=== PATIENT | male | born 1965 | race Caucasian/White ===

== ENCOUNTER 2016-12-28 05:45 | Inpatient (IN) | payer OTHER ==
[2016-11-30 11:36] VITALS: BMI 28.0
[2016-11-30 12:56] LABS: BASO % 0.7 %; BASO ABS # 0.04 K/uL (0-0.2); COMPLETE YES; EOS % 4.5 %; IG% 0.2 %; LYMPH % 31.5 %; LYMPH ABS # 1.73 K/uL (1.2-3.4); MEAN CELL VOLUME 85.7 fL (80-100); MEAN CORPUSCULAR HGB CONC 36.2 g/dl (32-36); MEAN PLATELET VOLUME 10.2 fL (7.4-10.4); MONO % 8.2 %; NEUT % 54.9 %; PLATELET COUNT 155 K/uL (130-400)
[2016-11-30 12:57] LABS: URINE APPEARANCE CLEAR (CLEAR); URINE BILIRUBIN NEG (NEG); URINE COLOR YELLOW; URINE NITRITE NEG (NEG); URINE SPECIFIC GRAVITY 1.022 (1.000-1.030); UROBILINOGEN NEG (NEG); ZZUR CULT IF INDIC CLEAN CATCH NO
[2016-11-30 13:02] LABS: MANUAL MICROSCOPIC REQUIRED? NO; REVIEW REQ? NO
--- NOTE | 2016-11-30 13:05 | DIAGNOSTIC IMAGING REPORT ---
CHEST 2 VIEWS ROUTINE CLINICAL HISTORY: Preoperative chest COMPARISON STUDY: No previous studies for comparison. FINDINGS: The heart is normal in size. There is no failure. There is no focal pulmonary consolidation. There is a 15 mm left apical opacity. It is not possible to determine with this is pleural, parenchymal, or related to underlying rib. CT scanning is recommended in follow-up.[ No pleural effusions are visualized. IMPRESSION: 15 mm left apical opacity. CT scanning is recommended in follow-up. Electronically signed by: Edgar Deras M.D. 11/30/2016 1:03 PM Dictated Date/Time: 11/30/2016 1:01 PM
[2016-11-30 13:50] LABS: BUN/CREATININE RATIO 22.2 (10-20); CALCIUM 8.7 mg/dl (8.5-10.1); CREATININE 0.96 mg/dl (0.60-1.40); POTASSIUM 4.4 mmol/L (3.5-5.1)
[~2016-12-28] VITALS: Ht 185.4 cm; Wt 97.4 kg
[2016-12-28] VITALS (10 sets, daily range): BP systolic 117–169; BP diastolic 66–99; PULSE 60–83; TEMP 36.4–37.2; O2SAT 96–100; BMI 28.3
[~2016-12-28 05:45] MED LIST: AMLO-110 PO; ASPI81TA28 PO; ATOR-22 PO; CALC500T64 PO; CHOL2000 PO; COEN100C11 PO; FLONASE NAE; GLYCINE PO; INSPMPNVLG; KRIL1CAP24 PO; LOSA1TAB38 PO; MELO7.5T5 PO; MISCTAB78 PO; MULT-1027 PO; MULT1PAK6 PO; OREGCAP PO; POTA2.5T PO; [UNRECOGNIZED DRUG - OTHER] PO; [UNRECOGNIZED DRUG - OTHER] PO
[2016-12-28] MEDS ORDERED: CEFAZOLIN 2000MG IV PUSH 10 ML IV SCH (06:00)
[2016-12-28] MEDS ORDERED: LACTATED RINGER'S 1000ML 1,000 ML IV SCH (06:00)
[2016-12-28] MEDS ORDERED: FENTANYL CITRATE INJ 50 MCG/1 ML 2 ML VIAL ONE ×4 (06:32→10:14)
[2016-12-28] MEDS ORDERED: MIDAZOLAM HCL 1 MG/ML 2ML VIAL ONE (06:32)
[2016-12-28] MEDS ORDERED: BACITRACIN 50000 UNIT VIAL ONE (06:52)
[2016-12-28] MEDS ORDERED: BUPIVACAINE/EPINEPHRINE 0.5% MPF 1:200,000 30 ML VIAL ONE (06:52)
[2016-12-28] MEDS ORDERED: ALBUMIN HUMAN 5% 12.5 GM/250 ML VIAL IV ONE (07:26)
--- NOTE | 2016-12-28 07:31 | History & Physical Bridge Note ---
H&P Re-Evaluation Bridge Note: I have examined the patient, reviewed the History & Physical and in the interval since the performance of the History & Physical I have noted the following changes of clinical significance: No changes noted
--- NOTE | 2016-12-28 07:33 | History and Physical ---
History & Physical Date Dec 28, 2016. Chief Complaint Back and leg pain History of Present Illness The patient is a 51 year old male with complaints of back and leg pain Additional History Hepatic Disease: No Endocrine Disorder: No Kidney Disease: No Hypertension: Yes Heart Disease: No Bleeding Tendencies: No Infectious Diseases: No Allergies Coded Allergies: Bacitracin (Verified Allergy, Unknown, REDNESS/RASH/ INFLAMMED?, 12/28/16) PT NOT SURE IF ALLERGIC TO NEOSPORIN, USED THIS AFTER SURGERY AND NOTICED THESE REACTIONS, WAS TOLD IT COULD BE TO LATEX OR NEOSPORIN - Latex1 -Allergic Contact Dermititis (Verified Allergy, Unknown, RASH/ REDNESS/INFLAMMED?, 12/28/16) PT QUESTIONNING LATEX ALLERGY, HAD THIS REACTION AFTER A SURGERY AND WAS TOLD IT COULD BE LATEX Neomycin (Verified Allergy, Unknown, REDNESS/RASH/ INFLAMMED?, 12/28/16) PT NOT SURE IF ALLERGIC TO NEOSPORIN, USED THIS AFTER SURGERY AND NOTICED THESE REACTIONS, WAS TOLD IT COULD BE TO LATEX OR NEOSPORIN - Polymyxin B (Verified Allergy, Unknown, REDNESS/RASH/ INFLAMMED?, 12/28/16 ) PT NOT SURE IF ALLERGIC TO NEOSPORIN, USED THIS AFTER SURGERY AND NOTICED THESE REACTIONS, WAS TOLD IT COULD BE TO LATEX OR NEOSPORIN - Home Medications Scheduled Amlodipine (Norvasc), 10 MG PO QPM Aspirin (Aspirin Ec), 81 MG PO QAM Atorvastatin (Lipitor), 20 MG PO QPM Calcium W/ Magnesium (Dex-Mag), 2 TAB PO QDD Cholecalciferol (Vitamin D3), 1 CAP PO QAM Coenzyme Q10 (Ubidecarenone) (Coq-10), 200 MG PO QAM Insulin Aspart (novoLOG INSULIN PUMP ), 1 DOSE UD Krill Oil (Krill Oil 500 mg), 350 MG PO BID Losartan Potassium (Cozaar), 100 MG PO QAM Meloxicam (Mobic), 15 MG PO EVERY OTHER DAY Misc Natural Products (Osteo Bi-Flex Advanced Do), 1 TAB PO QAM Multiple Vitamin (Multi Vitamin), 1 TAB PO BID Multiple Vitamins W/ Minerals (Emergen-C Vitamin C), 1 DOSE PO DAILY Oregano (Oil Of Oregano), 1 CAP PO QAM Potassium Gluconate (Potassium Gluconate), 1 TAB PO QAM [Glycine], Unknown Dose PO QAM [Prescript Assist ], 1 TAB PO QDD [Vitamin D [place]], 1 CAP PO QAM Scheduled PRN [Flonase], 1 SPRAY ZA UD PRN for Seasonal Allergies Physical Examination Skin: warm/dry, no rash Eyes: normal inspection, EOMI, sclerae normal ENT: normal ENT inspection, pharynx normal Head: normocephalic, atraumatic Neck: supple, no adenopathy, trachea midline Respiratory/Chest: lungs clear, normal breath sounds, no respiratory distress Cardiovascular: regular rate, rhythm, no edema, no murmur Abdomen / GI: normal bowel sounds, non tender Back: normal inspection Extremities: normal inspection, normal range of motion Neurologic/Psych: no motor/sensory deficits, alert, normal reflexes, oriented x 3 Diagnosis Lumbar spinal stenosis Plan of Treatment Lumbar decompression L2 to L5 with fusion L2 to S1
[2016-12-28] MEDS ORDERED: FENTANYL CITRATE INJ 50 MCG/1 ML 2 ML VIAL IV PRN (07:45)
[2016-12-28] MEDS ORDERED: ONDANSETRON INJ 2 MG/ML 2 ML VIAL IV PRN ×2 (07:45→10:30)
[2016-12-28] MEDS ORDERED: HYDROmorphone INJ 1 MG/ML SYR IV PRN (07:45)
[2016-12-28] MEDS ORDERED: PROMETHAZINE HCL INJ 6.25 MG in SODIUM CHLORIDE 0.9% 50ML 50 ML IV PRN (07:45)
[2016-12-28] MEDS ORDERED: EpHEDrine SULFATE INJ 50 MG/ML AMP IV PRN (07:45)
[2016-12-28] MEDS ORDERED: ATROPINE SULFATE 0.1 MG/ML 5ML SYR IV PRN (07:45)
[2016-12-28] MEDS ORDERED: HYDROmorphone INJ 2 MG/ML SYR/VIAL ONE ×2 (07:59→10:23)
[2016-12-28] MEDS ORDERED: FLOSEAL HEMOSTATIC MATRIX 10ML TOP ONE (10:10)
[2016-12-28] MEDS ORDERED: DEXAMETHASONE SOD INJ 4 MG/ML VIAL ONE (10:18)
[2016-12-28] MEDS ORDERED: ONDANSETRON INJ 2 MG/ML 2 ML VIAL ONE ×2 (10:18→10:24)
[2016-12-28] MEDS ORDERED: PROPOFOL IV EMULSION 10 MG/ML 20 ML VIAL IV ONE (10:18)
[2016-12-28] MEDS ORDERED: ROCURONIUM BROMIDE 10 MG/ML 5 ML VIAL IV ONE (10:18)
[2016-12-28] MEDS ORDERED: SODIUM CHLORIDE 0.9% 1000ML 1,000 ML IV SCH ×2 (10:18→12:30)
[2016-12-28] MEDS ORDERED: LIDOCAINE HCL 2% 2 ML VIAL (20MG/ML) ONE (10:18)
[2016-12-28] MEDS ORDERED: METOPROLOL TARTRATE 1 MG/ML VIAL ONE (10:24)
[2016-12-28] MEDS ORDERED: LABETALOL HCL IV 5 MG/ML 20ML IV ONE (10:24)
[2016-12-28] MEDS ORDERED: GLYCOPYRROLATE INJ 0.2 MG/ML VIAL ONE (10:24)
[2016-12-28] MEDS ORDERED: KETOROLAC TROMETHAMINE 30 MG/ML VIAL ONE (10:24)
[2016-12-28] MEDS ORDERED: NEOSTIGMINE METHYLSULFATE 1 MG/ML 10ML VIAL ONE (10:24)
--- NOTE | 2016-12-28 10:25 | [facility] Operative Report ---
Operative Report Operative Date Dec 28, 2016. Pre-Operative Diagnosis Lumbar Spinal Stenosis Post-Operative Diagnosis same Procedure(s) Performed #1 lumbar decompression medial facetectomies foraminotomies L2 3 L3 4 L4 5. #2 posterior spinal fusion L2 3 L3 4 L4 5 L5-S1. #3 placement posterior segmental instrumentation L2 to S1. #4 interbody fusion L4 5. #5 placement peek cage 10 x 26 mm at L4 5. #6 placement of locally harvested morcellized autograft and posterior gutters. #7 placement infuse collagen sponge commode Master graft the posterior gutters and ostial amp in the interbody space. Surgeon Dr. Law Enriquez Lead Sprinkler Surgeon(s) Nhung Santoyo PA-C Estimated Blood Loss 525ML Findings Severe spinal stenosis with herniated nucleus pulposus L2-3 Specimens none per surgeon Description of Procedure Patient was met with preoperatively case discussed all questions addressed. After informed consent obtained patient was taken operative suite underwent intubation placed in a prone position on the [place] table top Meir frame. All bony prominences well-padded eyes inspected to ensure there is no external pressure placed upon them. This point the lumbar spine was prepped and draped in the normal sterile fashion. Sharp dissection with the assistance of Bovie cautery was performed onto an exposing the lamina and transverse processes of L2 -L3 L4-L5 the sacral alar bilaterally. Then performed a complete laminectomy of L4 L3 and L2 addressing severe central lateral recess stenosis foraminal disease as well as a herniated was pulposus L2-3 on the left. After this was decompressed pedicle screws are placed in L2-L3 L4-L5 and the S1 levels bilaterally with the assistance of fluoroscopy in the appropriately sized alin placed. Through a trans-foraminal approach on the left complete discectomy of L45 was performed and plate created to subcortical bleeding bone and a 11 x 26 mm peek cage filled with ostial amp bone graft tapped in position. The rods were then locked and final position bilaterally. The transverse processes of L2 -L3 L4-L5 the sacral alar burred to subcortical bleeding bone. Infuse collagen sponge mask graft locally harvested morcellized autograft was placed and posterior gutters. Cross-link locked in position. 15 round MADHAVI drain inserted. Incision was then closed with 1 Vicryl fascia 2-0 Vicryl subcutaneously for Monocryl for final skin closure Steri-Strip sterile dressing was placed patient we can take PACU stable condition. Please note Nhung Willson was present throughout the entire procedure involved in patient positioning complex portions of the surgery and final skin closure. I attest to the content of the Intraoperative Record and any orders documented therein. Any exceptions are noted below.
[2016-12-28] MEDS ORDERED: NALOXONE HCL 0.4 MG/1 ML VIAL/CARP IV PRN ×2 (10:30)
[2016-12-28] MEDS ORDERED: hydrOXYzine HCL 25 MG TAB PO PRN (10:30)
[2016-12-28] MEDS ORDERED: SOD PHOSPHATE/SOD BIPHOSPHATE ENEMA 132 ML BTL PR PRN (10:30)
[2016-12-28] MEDS ORDERED: PROMETHAZINE HCL INJ 12.5 MG in SODIUM CHLORIDE 0.9% 50ML 50 ML IV PRN (10:30)
[2016-12-28] MEDS ORDERED: LORAZEPAM INJ 0.5 MG in SYRINGE 0 ML IV PRN (10:30)
[2016-12-28] MEDS ORDERED: DO NOT ADMINISTER PNEUMOCOCCAL VACCINE PRN ×2 (10:30)
[2016-12-28] MEDS ORDERED: FAMOTIDINE 20 MG TAB PO PRN (10:30)
[2016-12-28] MEDS ORDERED: BISACODYL 10 MG SUPP PR PRN (10:30)
[2016-12-28] MEDS ORDERED: LORAZEPAM 0.5 MG TAB PO PRN (10:30)
[2016-12-28] MEDS ORDERED: ACETAMINOPHEN 500 MG TAB PO PRN (10:30)
[2016-12-28] MEDS ORDERED: METOCLOPRAMIDE HCL INJ 5 MG/ML 2 ML VIAL IV PRN (10:30)
[2016-12-28] MEDS ORDERED: DO NOT ADMINISTER FLU VACCINE PRN ×3 (10:30)
[2016-12-28] MEDS ORDERED: ALUMINUM/MAGNESIUM SUSP 30 ML UDC PO PRN (10:30)
[2016-12-28] MEDS ORDERED: MAGNESIUM HYDROXIDE SUSP 30 ML UDC PO PRN (10:30)
[2016-12-28] MEDS ORDERED: ACETAMINOPHEN IV 100 ML IV PRN (10:30)
--- NOTE | 2016-12-28 10:39 | DIAGNOSTIC IMAGING REPORT ---
INTRAOPERATIVE LUMBAR SPINE 3 VIEWS CLINICAL HISTORY: L2-L5 DECOMPRESSION/ L2-S1 FUSION COMPARISON STUDY: Outside study dated 09/02/2016 FINDINGS: 37 seconds of fluoroscopic time was utilized. 3 intraoperative fluoroscopic spot images were obtained. There are postsurgical changes of an L4-5 discectomy and interbody fusion. Postlaminectomy changes are evident. There is posterior pedicle screw spinal fusion. There are pedicle screws at the L2-L5 levels with adjoining spinal rods. IMPRESSION: Postsurgical changes as described above. Electronically signed by: Edgar Deras M.D. 12/28/2016 10:38 AM Dictated Date/Time: 12/28/2016 10:37 AM
[2016-12-28] MEDS ORDERED: HYDROmorphone HCL 0.5MG/ML 50 ML CASSETTE ONE (10:44)
[2016-12-28] MEDS ORDERED: GLUCOSE 10 TABS/TUBE PO PRN (11:00)
[2016-12-28] MEDS ORDERED: GLUCOSE 40% GEL 15 GM TUBE PO PRN (11:00)
[2016-12-28] MEDS ORDERED: PHARMACY GLYCEMIC MGMT CONSULT PRN (11:00)
[2016-12-28] MEDS ORDERED: GLUCAGON FOR INJ 1 MG VIAL SQ PRN (11:00)
[2016-12-28] MEDS ORDERED: DEXTROSE 50% 50 ML SYR IV PRN (11:00)
--- NOTE | 2016-12-28 11:31 | Anesthesiology Progress Note ---
Anesthesia Post Op Note Date & Time Dec 28, 2016 at 11:30 Vital Signs Pain Intensity: 4 Vital Signs Past 12 Hours Date Time Temp Pulse Resp B/P (MAP) Pulse Ox O2 Delivery O2 Flow Rate FiO2 12/28/16 11:25 36.5 64 16 139/76 100 Nasal Cannula 2 12/28/16 10:57 63 17 12/28/16 10:57 63 17 100 12/28/16 10:56 160/92 12/28/16 10:52 62 16 100 12/28/16 10:52 61 16 12/28/16 10:51 150/85 12/28/16 10:47 60 15 100 12/28/16 10:47 60 15 12/28/16 10:46 158/85 12/28/16 10:42 63 12 100 12/28/16 10:42 63 12 12/28/16 10:41 161/87 12/28/16 10:38 171/80 12/28/16 10:37 69 14 12/28/16 10:37 36.6 65 14 171/80 100 Oxymask 10 12/28/16 10:37 69 14 100 12/28/16 06:24 36.6 75 18 169/99 97 Room Air Notes Mental Status: alert / awake / arousable, participated in evaluation Pt Amnestic to Procedure: Yes Nausea / Vomiting: adequately controlled Pain: adequately controlled Airway Patency, RR, SpO2: stable & adequate BP & HR: stable & adequate Hydration State: stable & adequate Anesthetic Complications: no major complications apparent Patient is tolerating PO. Blood sugar acceptable. Insulin pump running at basal rate to floor.
[2016-12-28] MEDS: HYDROmorphone HCL 0.5MG/ML 50 ML CASSETTE IV PRN ×2 (11:48→22:52)
--- NOTE | 2016-12-28 12:02 | Pharmacy Progress Note ---
Glycemic Control Intl Consult Date of Service Dec 28, 2016. Scope Glycemic Pharmacist consulted by Dr Enriquez on 12/28/16 for glycemic control and to write orders per [facility] inpatient glycemic control protocol Objective Weight (Kilograms): 97.4 Accuchecks BSG (last 24hrs): Test 12/28/16 06:10 12/28/16 09:02 12/28/16 10:02 12/28/16 11:00 Bedside Glucose 163 mg/dl (70-99) 209 mg/dl (70-99) 197 mg/dl (70-99) 177 mg/dl (70-99) Recent Pertinent Medications Outpatient Anti-diabetic Regimen: * Novolog Insulin Pump * CF: 30 * CR: 10 * Basal rates shift between 0.8-1.1 units/hr Risk Factors for Insulin Resistance: * Steroids * Recent Surgery * Diet Assessment & Plan ASSESSMENT: * 51 yo T1DM male admitted s/p lumbar decompression, POD #0 * Unknown outpatient glycemic control - will order A1c with AM labs * Pt uses Novolog insulin pump alone and basal/bolus settings will be discussed with him * I anticipate him to have significantly elevated BSGs immediately post-op due to high dose IV dexamethasone and current Novolog pump settings would not meet his needs * Recommend insulin drip per moderate stress protocol- goal range 100-180 mg/dL for 24 hrs post-op then bridge back to pump once effects of steroids dissipate * Spoke with pt and his Damari, he has had difficulty with wound healing in the past given high BSGs from steroids and is very concerned about his BSGs going >170. I told him the insulin drip is our best option and will provide the tightest control. Will transition to Novolog pump as soon as able. PLAN FOR INPATIENT GLYCEMIC CONTROL: * Start IV insulin infusion per moderate stress protocol * Goal Range 120 - 200 mg/dl * Hold outpatient Novolog Pump at this time * Correctional Insulin with NOVOLOG per scale PCHS * Instead of allowing drip rates to dictate prandial coverage - I will stress pt's presumed outpatient carb ratio * Nutritional / Prandial insulin per carb ratio of 1 unit per 7 grams CHO consumed? * Give NS+20KCL @ 150 cc/hr - anticipate electrolyte shifts while drip on - will follow up PRP tomorrow AM * OK to D/C when drip turned off * Please note that the plan above was derived based on current level of insulin resistance and hospital stress. These recommendations are appropriate for inpatient admission only. Plan of care upon discharge will need to be reassessed to avoid potential outpatient hypo/hyperglycemia. Thank you.
[2016-12-28] MEDS ORDERED: INSULIN IV INFUSION PROTOCOL SCH (13:15)
[2016-12-28] MEDS: LOSARTAN POTASSIUM 50 MG TAB PO SCH (13:27)
[2016-12-28] MEDS ORDERED: INSULIN HUMAN REGULAR IV BOLUS 2.5 UNIT in SYRINGE 0 ML IV SCH (14:00)
[2016-12-28] MEDS: INSULIN REGULAR 250 UNITS in SODIUM CHLORIDE 0.9% 250ML 250 ML IV SCH ×8 (14:10→22:18)
[2016-12-28] MEDS: INSULIN ASPART 100 UNITS/ML 3 ML PEN SC SCH ×3 (14:16→21:00)
[2016-12-28] MEDS: NSS + 20MEQ KCL 1000ML 1,000 ML IV SCH (14:19)
--- NOTE | 2016-12-28 17:15 | Medical Consult ---
Consultation Date of Consultation: Dec 28, 2016. Attending Physician: Law Enriquez D.O. History of Present Illness This is a 51 year old male with a PMH of testicular cancer s/p L orchiectomy and radiation, now in remission, type 1 DM on an insulin pump, HTN, HLD presents for a planned lumbar decompression/fusion - Lower back has been bothering him for some time and once the nerve became impinged, the pain became worse. States he's doing well post-operatively. On a CORE SHAPER pump for pain. Insulin pump held and insulin drip started. He feels fine, no complaints at this time. Social History Smoking Status: Never Smoker Allergies Coded Allergies: Bacitracin (Verified Allergy, Unknown, REDNESS/RASH/ INFLAMMED?, 12/28/16) PT NOT SURE IF ALLERGIC TO NEOSPORIN, USED THIS AFTER SURGERY AND NOTICED THESE REACTIONS, WAS TOLD IT COULD BE TO LATEX OR NEOSPORIN - Latex1 -Allergic Contact Dermititis (Verified Allergy, Unknown, RASH/ REDNESS/INFLAMMED?, 12/28/16) PT QUESTIONNING LATEX ALLERGY, HAD THIS REACTION AFTER A SURGERY AND WAS TOLD IT COULD BE LATEX Neomycin (Verified Allergy, Unknown, REDNESS/RASH/ INFLAMMED?, 12/28/16) PT NOT SURE IF ALLERGIC TO NEOSPORIN, USED THIS AFTER SURGERY AND NOTICED THESE REACTIONS, WAS TOLD IT COULD BE TO LATEX OR NEOSPORIN - Polymyxin B (Verified Allergy, Unknown, REDNESS/RASH/ INFLAMMED?, 12/28/16 ) PT NOT SURE IF ALLERGIC TO NEOSPORIN, USED THIS AFTER SURGERY AND NOTICED THESE REACTIONS, WAS TOLD IT COULD BE TO LATEX OR NEOSPORIN - Current Inpatient Medications Current Inpatient Medications Medications (Trade) Dose Ordered Sig/Khanh Route Start Time Stop Time Status Last Admin Dose Admin Cefazolin Sodium 10 ml @ 2.5 mls/min PREOP IV 12/28/16 06:00 12/28/16 18:00 12/28/16 07:40 2.5 MLS/MIN Dexamethasone Sodium Phosphate 6 mg/Syringe 1.5 ml @ 1 mls/min Q8H IV 12/28/16 18:00 12/29/16 10:02 Promethazine HCl 12.5 mg/Sodium Chloride 50.5 ml @ 202 mls/hr Q6H PRN IV 12/28/16 10:30 01/27/17 10:29 Ondansetron HCl (Zofran Inj) 4 mg Q6H PRN IV 12/28/16 10:30 01/27/17 10:29 Metoclopramide HCl (Reglan Inj) 10 mg Q6H PRN IV 12/28/16 10:30 01/27/17 10:29 Lorazepam (Ativan Tab) 0.5 mg Q8H PRN PO 12/28/16 10:30 01/27/17 10:29 Lorazepam 0.5 mg/ Syringe 0.25 ml @ 1 mls/min Q8H PRN IV 12/28/16 10:30 01/27/17 10:29 Pneumococcal Polysaccharide Vaccine 1 ea PRN PRN N/A 12/28/16 10:30 01/27/17 10:29 Influenza Virus Vacc Triv Types A&B 1 ea PRN PRN N/A 12/28/16 10:30 01/27/17 10:29 Polyethylene (Miralax Powder Packet) 17 gm Q6 PO 12/30/16 06:00 01/29/17 05:59 Bisacodyl (Dulcolax Supp) 10 mg DAILY PRN HI 12/28/16 10:30 01/27/17 10:29 Magnesium Hydroxide (Milk Of Magnesia Susp) 30 ml DAILY PRN PO 12/28/16 10:30 01/27/17 10:29 Hydromorphone HCl (Dilaudid Inj) 1 mg Q3H PRN IV 12/29/16 06:00 01/12/17 05:59 Oxycodone HCl (Roxicodone Immediate Rel Tab) 5-10mg prn moderate to sev... Q4H PRN PO 12/29/16 06:00 01/12/17 05:59 Cefazolin Sodium 2000 mg/Syringe 10 ml @ 2.5 mls/min Q8H IV 12/28/16 18:00 12/29/16 02:03 Acetaminophen (Tylenol Tab) 1,000 mg Q8H PRN PO 12/28/16 10:30 01/27/17 10:29 Acetaminophen 100 ml @ 400 mls/hr Q8H PRN IV 12/28/16 10:30 01/27/17 10:29 Naloxone HCl (Narcan Inj) 0.1 mg Q5M PRN IV 12/28/16 10:30 01/27/17 10:29 Senna/Docusate Sodium (Senokot S Tab) 2 tab HS PO 12/28/16 21:00 01/27/17 20:59 Sodium Biphosphate/ Sodium Phosphate (Fleet Enema) 132 ml ONE PRN HI 12/28/16 10:30 01/27/17 10:29 Hydroxyzine HCl (Vistaril Tab) 25 mg Q8H PRN PO 12/28/16 10:30 01/27/17 10:29 Al Hydroxide/Mg Hydroxide (Maalox Susp) 30 ml Q6H PRN PO 12/28/16 10:30 01/27/17 10:29 Famotidine (Pepcid Tab) 20 mg Q12H PRN PO 12/28/16 10:30 01/27/17 10:29 Diphenhydramine HCl (Benadryl Cap) 25 mg Q6H PRN PO 12/28/16 10:30 01/27/17 10:29 Miscellaneous Information (Discontinue CORE SHAPER) 1 ea TODAY@0600 N/A 12/29/16 06:00 12/29/16 06:01 Naloxone HCl (Narcan Inj) 0.1 mg Q5M PRN IV 12/28/16 10:30 12/29/16 06:00 Hydromorphone HCl (Dilaudid Postdoctoral Scientist) 25 mg PRN PRN IV 12/28/16 10:30 12/29/16 06:00 12/28/16 11:48 25 MG Sodium Chloride 1,000 ml @ 15 mls/hr Q24H IV 12/28/16 10:18 12/29/16 06:00 Amlodipine Besylate (Norvasc Tab) 10 mg QPM PO 12/28/16 21:00 01/27/17 20:59 Aspirin (Ecotrin Tab) 81 mg QAM PO 12/29/16 09:00 01/28/17 08:59 Atorvastatin Calcium (Lipitor Tab) 20 mg QPM PO 12/28/16 21:00 01/27/17 20:59 Losartan Potassium (coZAAR TAB) 100 mg QAM PO 12/28/16 12:30 01/27/17 12:29 12/28/16 13:27 100 MG Miscellaneous Information (Consult Glycemic Management Pharmacy) 1 ea UD PRN N/A 12/28/16 11:00 01/27/17 10:59 Glucose (Glucose 40% Gel) 15-30 GRAMS 15 GRAMS... UD PRN PO 12/28/16 11:00 01/27/17 10:59 Glucose (Glucose Chew Tab) 4-8 Tablets 4 Tabl... UD PRN PO 12/28/16 11:00 01/27/17 10:59 Dextrose (Dextrose 50% 50ML Syringe) 25-50ML OF 50% DW IV FOR... UD PRN IV 12/28/16 11:00 01/27/17 10:59 Glucagon (Glucagon Inj) 1 mg UD PRN SQ 12/28/16 11:00 01/27/17 10:59 Hydromorphone HCl (Dilaudid Inj) 0.5 mg Q3H PRN IV 12/29/16 06:00 01/12/17 05:59 Insulin Aspart (novoLOG ASPART) [facility] 12/28/16 13:00 01/27/17 12:59 12/28/16 14:16 4 UNITS Insulin Human Regular 250 units/ Sodium Chloride 252.5 ml @ 0 mls/hr Q24H IV 12/28/16 14:00 01/27/17 13:59 12/28/16 15:18 2.9 MLS/HR Potassium Chloride/Sodium Chloride 1,000 ml @ 100 mls/hr Q10H IV 12/28/16 14:00 01/27/17 13:59 12/28/16 14:19 100 MLS/HR Review of Systems Constitutional: + weakness, No fever, No chills Respiratory: No cough, No sputum, No shortness of breath, No dyspnea on exertion, No dyspnea at rest Cardiovascular: No chest pain, No edema, No palpitations Abdomen: No pain, No nausea, No vomiting, No diarrhea, No constipation, No GI bleeding Musculoskeletal: + joint pain (low back, now controlled), No muscle pain, No swelling, No calf pain Genitourinary - Male: No hematuria, No dysuria, No urinary frequency, No urinary urgency Neurologic: No memory loss, No paralysis, No weakness Psychiatric: No depression symptoms, No anxiety, No insomnia Endocrine: No fatigue, No excessive thirst, No excessive urination Hematologic / Lymphatic: No abnormal bleeding/bruising Integumentary: No rash Allergic / Immunologic: No environmental allergies, No seasonal allergies Physical Exam Date Time Temp Pulse Resp B/P (MAP) Pulse Ox O2 Delivery O2 Flow Rate FiO2 12/28/16 16:00 36.9 72 15 124/66 (85) 98 Nasal Cannula 2.0 12/28/16 14:47 36.4 70 16 131/75 (93) 99 Nasal Cannula 4.0 12/28/16 13:54 71 18 148/72 (97) 100 Nasal Cannula 4.0 12/28/16 12:49 36.7 69 16 152/82 (105) 99 Nasal Cannula 4.0 12/28/16 12:12 61 16 151/81 (104) 100 Nasal Cannula 2.0 12/28/16 11:50 Nasal Cannula 2.0 12/28/16 11:50 Nasal Cannula 2.0 12/28/16 11:45 36.8 60 16 143/76 (98) 99 Nasal Cannula 2.0 12/28/16 11:33 63 15 12/28/16 11:33 63 15 100 12/28/16 11:32 146/77 12/28/16 11:28 62 16 100 12/28/16 11:28 62 16 12/28/16 11:26 139/76 12/28/16 11:25 36.5 64 16 139/76 100 Nasal Cannula 2 12/28/16 11:23 67 10 12/28/16 11:23 68 10 100 12/28/16 11:21 153/79 12/28/16 11:18 60 12 100 12/28/16 11:18 60 12 12/28/16 11:16 140/90 12/28/16 11:13 59 8 12/28/16 11:13 58 8 100 12/28/16 11:11 153/83 12/28/16 11:08 60 11 100 12/28/16 11:08 60 11 12/28/16 11:06 176/84 12/28/16 11:03 62 15 100 12/28/16 11:03 61 15 12/28/16 11:01 151/83 12/28/16 10:58 60 16 100 12/28/16 10:58 61 16 12/28/16 10:57 63 17 12/28/16 10:57 63 17 100 12/28/16 10:56 160/92 12/28/16 10:52 62 16 100 12/28/16 10:52 61 16 12/28/16 10:51 150/85 12/28/16 10:47 60 15 100 12/28/16 10:47 60 15 12/28/16 10:46 158/85 12/28/16 10:42 63 12 100 12/28/16 10:42 63 12 12/28/16 10:41 161/87 12/28/16 10:38 171/80 12/28/16 10:37 69 14 12/28/16 10:37 36.6 65 14 171/80 100 Oxymask 10 12/28/16 10:37 69 14 100 12/28/16 06:24 36.6 75 18 169/99 97 Room Air General Appearance: no apparent distress Head: normocephalic, atraumatic Eyes: normal inspection ENT: hearing grossly normal Neck: supple Respiratory/Chest: chest non-tender, lungs clear, normal breath sounds, no respiratory distress, no accessory muscle use Cardiovascular: regular rate, rhythm, no edema, no murmur Abdomen/GI: normal bowel sounds, non tender, soft Back: + pertinent finding (+MADHAVI drain in place, draining bloody discharge) Extremities/Musculoskelatal: normal inspection, no calf tenderness, normal capillary refill, no pedal edema, normal range of motion, + pertinent finding (+ SCDs) Neurologic/Psych: repossessor II-XII nml as tested, no motor/sensory deficits, alert, normal mood/affect, oriented x 3 Skin: normal color Lymphatic: no adenopathy Laboratory Results Last 24 Hours Test 12/28/16 06:10 12/28/16 09:02 12/28/16 10:02 12/28/16 11:00 Bedside Glucose 163 mg/dl 209 mg/dl 197 mg/dl 177 mg/dl Test 12/28/16 12:02 12/28/16 13:32 12/28/16 15:12 12/28/16 16:13 Bedside Glucose 170 mg/dl 201 mg/dl 239 mg/dl 222 mg/dl Assessment & Plan This is a 51 year old male with a PMH of testicular cancer s/p L orchiectomy and radiation, now in remission, type 1 DM on an insulin pump, HTN, HLD presents for a planned lumbar decompression/fusion Lumbar Decompression/Fusion doing well post-operatively POD #0 will check labs in AM (H/H, electrolytes) currently on a CORE SHAPER pump other management as per ortho Type 1 Diabetes on an insulin pump at home currently on an insulin drip and some fluids will monitor, due to stress of surgery and stefanie-operative steroid use glycemic control consult placed HTN continue amlodipine + Cozaar HLD continue statin DVT ppx as per ortho FULL CODE
[2016-12-28] MEDS: DEXAMETHASONE INJ 6 MG in SYRINGE 0 ML IV SCH (18:25)
[2016-12-28] MEDS: CEFAZOLIN IV 2,000 MG in SYRINGE 0 ML IV SCH (18:30)
[2016-12-28] MEDS: DOCUSATE SODIUM/SENNA 50/8.6MG TAB PO SCH (20:17)
[2016-12-28] MEDS: AMLODIPINE BESYLATE 5 MG TAB PO SCH (20:18)
[2016-12-28] MEDS: ATORVASTATIN 20 MG TAB PO SCH (20:18)
[2016-12-29] MEDS: NSS + 20MEQ KCL 1000ML 1,000 ML IV SCH ×3 (00:06→20:21)
[2016-12-29] MEDS: DEXAMETHASONE INJ 6 MG in SYRINGE 0 ML IV SCH ×2 (02:11→10:39)
[2016-12-29] MEDS: CEFAZOLIN IV 2,000 MG in SYRINGE 0 ML IV SCH (02:12)
[2016-12-29 03:08] VITALS: BP 133/76; PULSE 64; TEMP 36.6; O2SAT 98
[2016-12-29] MEDS ORDERED: HYDROmorphone INJ 1 MG/ML SYR IV PRN (06:00)
[2016-12-29] MEDS ORDERED: DC PCA SCH (06:00)
[2016-12-29] MEDS ORDERED: HYDROmorphone INJ 0.5 MG/0.5 ML SYR IV PRN (06:00)
[2016-12-29 07:13] LABS: BASO % 0.1 %; BASO ABS # 0.01 K/uL (0-0.2); COMPLETE YES; HEMATOCRIT 33.1 % (42-52); IG% 0.3 %; LYMPH % 6.7 %; LYMPH ABS # 1.02 K/uL (1.2-3.4); MEAN CELL VOLUME 87.3 fL (80-100); MEAN CORPUSCULAR HEMOGLOBIN 30.9 pg (25-34); MEAN CORPUSCULAR HGB CONC 35.3 g/dl (32-36); MEAN PLATELET VOLUME 10.1 fL (7.4-10.4); MONO % 2.4 %; NEUT % 90.5 %; PLATELET COUNT 154 K/uL (130-400); RED BLOOD COUNT 3.79 M/uL (4.7-6.1); WHITE BLOOD COUNT 15.26 K/uL (4.8-10.8)
[2016-12-29 07:39] VITALS: BP 153/82; PULSE 68; TEMP 36.8; O2SAT 97
[2016-12-29 07:42] LABS: BUN/CREATININE RATIO 20.3 (10-20); CALCIUM 8.3 mg/dl (8.5-10.1); CREATININE 0.95 mg/dl (0.60-1.40); POTASSIUM 4.3 mmol/L (3.5-5.1)
--- NOTE | 2016-12-29 07:56 | Anesthesiology Progress Note ---
Anesthesia Post Op Note Date & Time Dec 29, 2016 at 07:56 Vital Signs Pain Intensity: 4.0 Vital Signs Past 12 Hours Date Time Temp Pulse Resp B/P (MAP) Pulse Ox O2 Delivery O2 Flow Rate FiO2 12/29/16 07:39 36.8 68 19 153/82 (105) 97 Room Air 12/29/16 03:08 36.6 64 14 133/76 (95) 98 Room Air 12/28/16 23:10 Room Air 12/28/16 23:06 36.9 68 18 117/68 (84) 99 Room Air 12/28/16 20:15 66 150/73 (98) Notes Mental Status: alert / awake / arousable, participated in evaluation Pt Amnestic to Procedure: Yes Nausea / Vomiting: adequately controlled Pain: adequately controlled Airway Patency, RR, SpO2: stable & adequate BP & HR: stable & adequate Hydration State: stable & adequate Anesthetic Complications: no major complications apparent
[2016-12-29] MEDS: ASPIRIN 81 MG ECTAB PO SCH (08:22)
[2016-12-29] MEDS: LOSARTAN POTASSIUM 50 MG TAB PO SCH (08:23)
[2016-12-29] MEDS: INSULIN ASPART 100 UNITS/ML 3 ML PEN SC SCH ×4 (08:32→20:29)
[2016-12-29 08:34] LABS: ESTIMATED AVERAGE GLUCOSE 166 mg/dl; HA1C FLAG Normal (Normal)
[2016-12-29] MEDS: OXYCODONE HCL IR 5 MG TAB (IMMEDIATE RELEASE) PO PRN ×3 (08:35→20:27)
--- NOTE | 2016-12-29 09:26 | Pharmacy Progress Note ---
Glycemic Control Progress Note Date of Service Dec 29, 2016. Scope Glycemic Pharmacist consulted for glycemic control to write orders per [facility] inpatient glycemic control protocol. Objective Accuchecks BSG (last 24hrs): Test 12/28/16 10:02 12/28/16 11:00 12/28/16 12:02 12/28/16 13:32 Bedside Glucose 197 mg/dl (70-99) 177 mg/dl (70-99) 170 mg/dl (70-99) 201 mg/dl (70-99) Test 12/28/16 15:12 12/28/16 16:13 12/28/16 17:12 12/28/16 18:14 Bedside Glucose 239 mg/dl (70-99) 222 mg/dl (70-99) 191 mg/dl (70-99) 213 mg/dl (70-99) Test 12/28/16 19:16 12/28/16 20:13 12/28/16 21:16 12/28/16 22:15 Bedside Glucose 216 mg/dl (70-99) 185 mg/dl (70-99) 169 mg/dl (70-99) 154 mg/dl (70-99) Test 12/29/16 00:08 12/29/16 02:11 12/29/16 04:17 12/29/16 06:12 Bedside Glucose 145 mg/dl (70-99) 158 mg/dl (70-99) 157 mg/dl (70-99) 174 mg/dl (70-99) Test 12/29/16 06:53 Random Glucose 163 mg/dl (70-99) HbA1c: Test 12/29/16 06:53 Hemoglobin A1c 7.4 % (4.5-5.6) H Recent Pertinent Medications The patient is currently receiving: * an insulin drip at 4.2 units/hr, and Novolog with meals using a CR of 7 Outpatient Anti-Diabetic Meds * Novolog Insulin Pump * CF: 30 * CR: 10 * Basal rates shift between 0.8-1.1 units/hr Assessment & Plan ASSESSMENT: * See progress note from 12/28 for more background info, in short: * Pt receiving SQ basal bolus insulin regimen for hyperglycemia secondary to baseline DM (outpatient regimen on hold), recent surgery, steroids * Patient is currently receiving an average of 100 units of insulin per day * BSGs ranging 163 - 174 mg/dl over the past 24hrs * BSGs remain controlled on the insulin drip while on IV Decadron postop, however, insulin drip rates are 4x that of his insulin pump! * The plan will be to continue on the insulin drip for best glucose control while on the IV steroids. I expect the effects on blood glucose to resolve later tonight into tomorrow AM. * Patient can transition back to his pump once insulin drip rates are back to his insulin pump settings PLAN FOR INPATIENT GLYCEMIC CONTROL: * Continue insulin infusion with current goal range and tightened CR for the steroids * Tighten further to 1 unit per 5 gm CHO * Transition back to insulin pump when insulin drip rates are less than 1.5 units/hr (and when patient has own pump supplies) - confirmed with nurse today that patient has his own supplies here * Overlap for ~ 1 hr * D/c IVF when insulin drip d/c'd RECOMMENDATIONS FOR DISCHARGE: * A1c indicates acceptable outpatient control. Continue insulin pump on d/c Thank you.
[2016-12-29] MEDS ORDERED: RXC5 PO (10:14)
--- NOTE | 2016-12-29 10:14 | Discharge Instructions ---
Discharge Instructions Date of Service Dec 29, 2016. Admission Reason for Admission: Spinal Stenosis Discharge Discharge Diagnosis / Problem: lumbar spinal stenosis Discharge Goals Goal(s): Improve function Activity Recommendations Activity Limitations: per Instructions/Follow-up section . Instructions / Follow-Up Instructions / Follow-Up ACTIVITY RECOMMENDATIONS: SELF CARE INSTRUCTIONS AFTER THORACIC/LUMBAR FUSIONS 1. You may walk to your tolerance. It is good exercise for your legs and back. Expect some back and intermittent leg aches and pains. 2. You may perform "counter-top" level activities (make a sandwich, maulik with a project, etc.). 3. No bending or lifting of more than 10 pounds or back twisting of any nature (roll like a log when turning in bed). 4. You may ride in a car for 20-30 minutes at a time. No driving until after your first visit with your doctor. 5. Frequent changes of position and restricting sitting to 30 minutes at a time will help limit the amount of back spasms and stiffness you may experience. 6. You may discontinue the use of ambulatory aids (cane, crutches, etc.) once your strength and confidence allow. 7. You may procurement internship the shower and let water strike your incision when you arrive home at least once daily. Do not take a tub bath, sit in a hot tub or go into a swimming pool until after your first recheck in the office. SPECIAL CARE INSTRUCTIONS: VERY IMPORTANT TO READ AND REVIEW A. Your surgical incision has been closed with a cosmetic suture under the skin that will dissolve in about 6 weeks. In 14 days, you can use a pair of clean scissors and cut the suture that is left outside of the skin at the ends of your incision. 1. The small skin tapes can be removed 7 days after surgery if they have not fallen off by that point. 2. You may keep the wound open to air as much as possible to promote healing after post-op day number 5 unless told otherwise by your doctor. 3. If you think the wound looks like it is becoming infected (redness or worsening drainage) and/or you are experiencing fever, chill or worsening back pain and muscle spasms, contact the office so that we may evaluate you as soon as possible. B. Complications are uncommon, but please contact us if you have any signs or symptoms of: 1. wound infection (fever higher than 102.5 degrees F, redness, separation of wound, drainage, or increasing pain from the incision) 2. blood clots in legs (pain, swelling, redness and warmth in legs) 3. urinary tract infection (fever higher than 102.5 degrees F, burning upon urination or increased frequency of urination) 4. nerve problems (inability to walk on your toes or heels, numbness, loss of bowel or bladder control) 5. any other symptoms that concern you C. Please call the office at if you have any concerns or questions about your operation or recovery. D. No smoking! Smoking drastically decreases the chance of a solid fusion. E. Do not take any anti-inflammatory medications (Indocin, Advil, Motrin, Aspirin, Naprosyn, etc.) as these may inhibit the chance of a solid fusion. Tylenol is okay to take for pain. MANAGING PAIN AFTER SPINAL SURGERY 1. Narcotic medication is intended for short-term use and will be provided for surgical pain. Surgical pain usually lasts for a period of 4-6 weeks. Narcotic medication includes Percocet, Vicodin, Darvocet, Tylenol #3 or Lortab. 2. Longer-term pain is more appropriately treated with non-narcotic medication such as Tylenol ES. 3. Muscle spasm is not appropriately treated with narcotics. Muscle relaxers such as Soma, Flexeril or Skelaxin can be used along with Tylenol ES. 4. Remember that we all live with some "aches and pains". This is not unusual or uncommon after an injury or as we get older. a. Back pain is expected and may include muscle spasms for 4 to 6 weeks after surgery. The pain should gradually improve. If the pain worsens for no apparent reason, please contact the office. b. Intermittent leg pain may also be experienced and should not be concerned about unless it worsens for no apparent reason. If so, please contact the office. 5. We will provide appropriate medication within the normal guidelines of their prescribed use. We will also be very cautious and aware of potential abuse and extended duration of patients' medication needs. a. Pain medications are for your comfort and to assist with sleep and rest so that the tissue can heal. They are not provided in order to return to normal activity and should not be used through the day. To do so or worsening pain at night can result from ongoing tissue damage and development of tolerance to the prescribed medicine. 6. Please allow 2-3 days to process refills. Prescriptions will not be mailed but must be picked up at the office. FOLLOW UP VISIT: Keep your scheduled follow-up appointment. Any questions, please call the office at . Current Hospital Diet Patient's current hospital diet: Diabetes Type 1 Diet Discharge Diet Recommended Diet: Regular Diet Procedures Procedures Performed: #1 lumbar decompression medial facetectomies foraminotomies L2 3 L3 4 L4 5. #2 posterior spinal fusion L2 3 L3 4 L4 5 L5-S1. #3 placement posterior segmental instrumentation L2 to S1. #4 interbody fusion L4 5. #5 placement peek cage 10 x 26 mm at L4 5. #6 placement of locally harvested morcellized autograft and posterior gutters. #7 placement infuse collagen sponge commode Master graft the posterior gutters and ostial amp in the interbody space. Pending Studies Studies pending at discharge: no Laboratory Results Hemoglobin A1c Test 12/29/16 06:53 Range/Units Estimated Average Glucose 166 mg/dl Hemoglobin A1c 7.4 H 4.5-5.6 % Medical Emergencies . Who to Call and When: Medical Emergencies: If at any time you feel your situation is an emergency, please call 911 immediately. . Non-Emergent Contact Non-Emergency issues call your: Primary Care Provider . "Provider Documentation" section prepared by Law Enriquez. . VTE Core Measure Inpt VTE Proph given/why not?: Brenda Espino, SCD's
[2016-12-29] MEDS: INSULIN REGULAR 250 UNITS in SODIUM CHLORIDE 0.9% 250ML 250 ML IV SCH ×11 (10:33→22:19)
[2016-12-29 12:07] VITALS: BP_SYST 157; PULSE 67; TEMP 36.7; O2SAT 98
--- NOTE | 2016-12-29 13:10 | Progress Note ---
Subjective Date of Service: Dec 29, 2016. Subjective Pt evaluation today including: conversation w/ patient, physical exam, lab review, review of studies, review of inpatient medication list Objective Vital Signs Date Time Temp Pulse Resp B/P (MAP) Pulse Ox O2 Delivery O2 Flow Rate FiO2 12/29/16 12:07 36.7 67 19 157/ (52) 98 Room Air 12/29/16 08:05 Room Air 12/29/16 07:39 36.8 68 19 153/82 (105) 97 Room Air 12/29/16 03:08 36.6 64 14 133/76 (95) 98 Room Air 12/28/16 23:10 Room Air 12/28/16 23:06 36.9 68 18 117/68 (84) 99 Room Air 12/28/16 20:15 66 150/73 (98) 12/28/16 19:13 37.2 83 17 132/74 (93) 96 Room Air 12/28/16 16:00 36.9 72 15 124/66 (85) 98 Nasal Cannula 2.0 12/28/16 14:47 36.4 70 16 131/75 (93) 99 Nasal Cannula 4.0 12/28/16 13:54 71 18 148/72 (97) 100 Nasal Cannula 4.0 Physical Exam General Appearance: no apparent distress Eyes: normal inspection ENT: hearing grossly normal Neck: supple Respiratory/Chest: lungs clear, normal breath sounds, no respiratory distress, no accessory muscle use Cardiovascular: regular rate, rhythm, no edema, no murmur Abdomen: normal bowel sounds, non tender, soft Extremities: normal inspection, no pedal edema, + pertinent finding (+MADHAVI drain on back) Neurologic/Psychiatric: no motor/sensory deficits, alert, normal mood/affect Laboratory Results Last 24 Hours Test 12/28/16 13:32 12/28/16 15:12 12/28/16 16:13 12/28/16 17:12 Bedside Glucose 201 mg/dl 239 mg/dl 222 mg/dl 191 mg/dl Test 12/28/16 18:14 12/28/16 19:16 12/28/16 20:13 12/28/16 21:16 Bedside Glucose 213 mg/dl 216 mg/dl 185 mg/dl 169 mg/dl Test 12/28/16 22:15 12/29/16 00:08 12/29/16 02:11 12/29/16 04:17 Bedside Glucose 154 mg/dl 145 mg/dl 158 mg/dl 157 mg/dl Test 12/29/16 06:12 12/29/16 06:53 12/29/16 10:14 12/29/16 11:36 Bedside Glucose 174 mg/dl 276 mg/dl 272 mg/dl White Blood Count 15.26 K/uL Red Blood Count 3.79 M/uL Hemoglobin 11.7 g/dL Hematocrit 33.1 % Mean Corpuscular Volume 87.3 fL Mean Corpuscular Hemoglobin 30.9 pg Mean Corpuscular Hemoglobin Concent 35.3 g/dl Platelet Count 154 K/uL Mean Platelet Volume 10.1 fL Neutrophils (%) (Auto) 90.5 % Lymphocytes (%) (Auto) 6.7 % Monocytes (%) (Auto) 2.4 % Eosinophils (%) (Auto) 0.0 % Basophils (%) (Auto) 0.1 % Neutrophils # (Auto) 13.83 K/uL Lymphocytes # (Auto) 1.02 K/uL Monocytes # (Auto) 0.36 K/uL Eosinophils # (Auto) 0.00 K/uL Basophils # (Auto) 0.01 K/uL RDW Standard Deviation 41.2 fL RDW Coefficient of Variation 12.9 % Immature Granulocyte % (Auto) 0.3 % Immature Granulocyte # (Auto) 0.04 K/uL Sodium Level 141 mmol/L Potassium Level 4.3 mmol/L Chloride Level 107 mmol/L Carbon Dioxide Level 26 mmol/L Anion Gap 8.0 mmol/L Blood Urea Nitrogen 19 mg/dl Creatinine 0.95 mg/dl Est Creatinine Clear Calc Drug Dose 110.5 ml/min Estimated GFR () 105.5 Estimated GFR (Non- 91.0 BUN/Creatinine Ratio 20.3 Random Glucose 163 mg/dl Estimated Average Glucose 166 mg/dl Hemoglobin A1c 7.4 % Calcium Level 8.3 mg/dl Test 12/29/16 12:47 Bedside Glucose 208 mg/dl Assessment and Plan This is a 51 year old male with a PMH of testicular cancer s/p L orchiectomy and radiation, now in remission, type 1 DM on an insulin pump, HTN, HLD presents for a planned lumbar decompression/fusion Lumbar Decompression/Fusion 12/29 doing well clinically expected H/H drop monitor labs 12/28 doing well post-operatively POD #0 will check labs in AM (H/H, electrolytes) 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
[2016-12-29 14:56] VITALS: BP 162/84; PULSE 72; TEMP 36.5; O2SAT 97
--- NOTE | 2016-12-29 15:05 | Progress Note ---
Progress Note Date of Service Dec 29, 2016. Progress Note Patient's postoperative day #1. Back symptoms are controlled leg symptoms markedly improved. Vital signs are stable. MADHAVI drain still quite significant. On exam is good strength testing appears comfortable. Assessment status post multilevel lumbar decompression fusion at this time we will continue physical therapy monitor is MADHAVI output hopefully home .
[2016-12-29 16:08] VITALS: Ht 185.4 cm; Wt 97.4 kg
[2016-12-29] MEDS: AMLODIPINE BESYLATE 5 MG TAB PO SCH (20:22)
[2016-12-29] MEDS: ATORVASTATIN 20 MG TAB PO SCH (20:22)
[2016-12-29] MEDS: DOCUSATE SODIUM/SENNA 50/8.6MG TAB PO SCH (20:22)
[2016-12-29 20:24] VITALS: BP 147/80
[2016-12-29 22:51] VITALS: BP 148/77; PULSE 68; TEMP 36.5; O2SAT 99
[2016-12-30] MEDS: INSULIN REGULAR 250 UNITS in SODIUM CHLORIDE 0.9% 250ML 250 ML IV SCH ×4 (02:43→10:54)
[2016-12-30] MEDS: NSS + 20MEQ KCL 1000ML 1,000 ML IV SCH (05:34)
[2016-12-30] MEDS: POLYETHYLENE (MIRALAX) 17 GM PACK PO SCH ×3 (05:34→17:50)
[2016-12-30] MEDS: OXYCODONE HCL IR 5 MG TAB (IMMEDIATE RELEASE) PO PRN (05:40)
[2016-12-30 06:22] LABS: HEMATOCRIT 34.4 % (42-52); MEAN CELL VOLUME 87.1 fL (80-100); MEAN CORPUSCULAR HEMOGLOBIN 30.6 pg (25-34); MEAN CORPUSCULAR HGB CONC 35.2 g/dl (32-36); PLATELET COUNT 166 K/uL (130-400); RED BLOOD COUNT 3.95 M/uL (4.7-6.1); WHITE BLOOD COUNT 14.69 K/uL (4.8-10.8)
[2016-12-30 06:55] LABS: BUN/CREATININE RATIO 24.4 (10-20); CALCIUM 8.7 mg/dl (8.5-10.1); CREATININE 0.79 mg/dl (0.60-1.40); POTASSIUM 4.2 mmol/L (3.5-5.1)
[2016-12-30 07:15] VITALS: BP 161/95; PULSE 76; TEMP 36.5; O2SAT 99
[2016-12-30] MEDS: LOSARTAN POTASSIUM 50 MG TAB PO SCH (09:15)
[2016-12-30] MEDS: ASPIRIN 81 MG ECTAB PO SCH (09:15)
[2016-12-30] MEDS: KETOROLAC TROMETHAMINE 30 MG/ML VIAL IV PRN ×3 (09:16→21:33)
[2016-12-30] MEDS: INSULIN ASPART 100 UNITS/ML 3 ML PEN SC SCH (09:20)
[2016-12-30] MEDS ORDERED: INSULIN ASPART 100 UNITS/ML VIAL SC PRN (11:15)
[2016-12-30] MEDS: NovoLOG INSULIN PUMP SCH ×3 (11:34→21:30)
[2016-12-30] MEDS ORDERED: [UNRECOGNIZED DRUG - REMARK] ONE (12:00)
--- NOTE | 2016-12-30 12:26 | Pharmacy Progress Note ---
Glycemic Control Progress Note Date of Service Dec 30, 2016. Scope Glycemic Pharmacist consulted for glycemic control to write orders per [facility] inpatient glycemic control protocol. Objective Accuchecks BSG (last 24hrs): Test 12/29/16 12:47 12/29/16 13:51 12/29/16 15:02 12/29/16 16:07 Bedside Glucose 208 mg/dl (70-99) 215 mg/dl (70-99) 181 mg/dl (70-99) 142 mg/dl (70-99) Test 12/29/16 17:05 12/29/16 18:08 12/29/16 19:08 12/29/16 20:05 Bedside Glucose 107 mg/dl (70-99) 112 mg/dl (70-99) 226 mg/dl (70-99) 193 mg/dl (70-99) Test 12/29/16 21:18 12/29/16 22:15 12/29/16 22:59 12/30/16 00:09 Bedside Glucose 150 mg/dl (70-99) 124 mg/dl (70-99) 106 mg/dl (70-99) 83 mg/dl (70-99) Test 12/30/16 00:28 12/30/16 01:29 12/30/16 02:30 12/30/16 03:33 Bedside Glucose 83 mg/dl (70-99) 109 mg/dl (70-99) 184 mg/dl (70-99) 200 mg/dl (70-99) Test 12/30/16 04:29 12/30/16 05:28 12/30/16 06:04 12/30/16 06:30 Bedside Glucose 177 mg/dl (70-99) 177 mg/dl (70-99) 151 mg/dl (70-99) Random Glucose 172 mg/dl (70-99) Test 12/30/16 08:25 12/30/16 10:41 12/30/16 11:55 Bedside Glucose 160 mg/dl (70-99) 265 mg/dl (70-99) 231 mg/dl (70-99) HbA1c: Test 12/29/16 06:53 Hemoglobin A1c 7.4 % (4.5-5.6) H Recent Pertinent Medications The patient is currently receiving: * an insulin drip at 2.3 units/hr (was up to 8.5 units/hr yesterday), and Novolog with meals using a CR of 7 (was at 5 yesterday) Outpatient Anti-Diabetic Meds * Novolog Insulin Pump * CF: 30 * CR: 10 * Basal rates shift between 0.8-1.1 units/hr Assessment & Plan ASSESSMENT: * See progress note from 12/29 for more background info, in short: * Pt is a type 1 diabetic receiving IV insulin regimen for hyperglycemia secondary to baseline DM (outpatient regimen on hold), recent surgery, steroids (last dose of Decadron yesterday at 10 am) * Insulin drip rates have decreased significantly because of the steroids starting to wear off, however, they are not at baseline. I spoke with the patient today and he apparently has a sick day basal setting on his pump that is 2 units/hr continuously. He reports having to use this more frequently when he is laying around in bed and less active. He is very knowledgeable about his diabetes and able to adjust pump settings very easily. In an effort to get him off the insulin drip, the plan will be to have him resume his insulin pump but use his sick day settings (which is exactly what the insulin drip is currently running at) and tighten the CF to 20 and CR to 7. We used a CR of 7 this AM and BSGs spiked but I'm hesitant to tighten this up further since steroids should be wearing off and patient reports that he tends to drop in the afternoons if he overcorrects his BSGs. PLAN FOR INPATIENT GLYCEMIC CONTROL: (was discussed at length with the patient and he is comfortable with this) * Resume Novolog insulin pump with sick day basal settings (2 units/hr) * Adjust CF to 20 mg/dL/unit * Adjust CR to 1 unit per 7 grams CHO consumed * Go back to usual pump settings if patient starts to have hypoglycemic episodes * D/c insulin drip 1 hour after pump started * D/c IVF since insulin drip stopped - as per previous discussion with Dr. Enriquez RECOMMENDATIONS FOR DISCHARGE: * A1c indicates acceptable outpatient control. Continue insulin pump on d/c Thank you.
--- NOTE | 2016-12-30 12:53 | Progress Note ---
Subjective Date of Service: Dec 30, 2016. Subjective Pt evaluation today including: conversation w/ patient, physical exam, lab review, review of studies, conversation w/ food consultant, review of inpatient medication list Saw/examined the patient in room 309 some back soreness today no lower extremity pain Denies nausea/vomiting/diarrhea, denies fevers/chills MADHAVI drain still draining, but slowing No other issues to note. Review of Systems Constitutional: No fever, No chills Respiratory: No cough, No sputum, No shortness of breath Cardiac: No chest pain Abdomen: No pain, No nausea, No vomiting, No diarrhea Musculoskeletal: + joint pain Medications Current Inpatient Medications Medications (Trade) Dose Ordered Sig/Khanh Route Start Time Stop Time Status Last Admin Dose Admin Promethazine HCl 12.5 mg/Sodium Chloride 50.5 ml @ 202 mls/hr Q6H PRN IV 12/28/16 10:30 01/27/17 10:29 Ondansetron HCl (Zofran Inj) 4 mg Q6H PRN IV 12/28/16 10:30 01/27/17 10:29 Metoclopramide HCl (Reglan Inj) 10 mg Q6H PRN IV 12/28/16 10:30 01/27/17 10:29 Lorazepam (Ativan Tab) 0.5 mg Q8H PRN PO 12/28/16 10:30 01/27/17 10:29 Lorazepam 0.5 mg/ Syringe 0.25 ml @ 1 mls/min Q8H PRN IV 12/28/16 10:30 01/27/17 10:29 Pneumococcal Polysaccharide Vaccine 1 ea PRN PRN N/A 12/28/16 10:30 01/27/17 10:29 Influenza Virus Vacc Triv Types A&B 1 ea PRN PRN N/A 12/28/16 10:30 01/27/17 10:29 Polyethylene (Miralax Powder Packet) 17 gm Q6 PO 12/30/16 06:00 01/29/17 05:59 12/30/16 12:37 17 GM Bisacodyl (Dulcolax Supp) 10 mg DAILY PRN [place] 12/28/16 10:30 01/27/17 10:29 Magnesium Hydroxide (Milk Of Magnesia Susp) 30 ml DAILY PRN PO 12/28/16 10:30 01/27/17 10:29 12/30/16 05:39 30 ML Hydromorphone HCl (Dilaudid Inj) 1 mg Q3H PRN IV 12/29/16 06:00 01/12/17 05:59 Oxycodone HCl (Roxicodone Immediate Rel Tab) 5-10mg prn moderate to sev... Q4H PRN PO 12/29/16 06:00 01/12/17 05:59 12/30/16 05:40 10 MG Acetaminophen (Tylenol Tab) 1,000 mg Q8H PRN PO 12/28/16 10:30 01/27/17 10:29 12/29/16 08:34 1,000 MG Acetaminophen 100 ml @ 400 mls/hr Q8H PRN IV 12/28/16 10:30 01/27/17 10:29 Naloxone HCl (Narcan Inj) 0.1 mg Q5M PRN IV 12/28/16 10:30 01/27/17 10:29 Senna/Docusate Sodium (Senokot S Tab) 2 tab HS PO 12/28/16 21:00 01/27/17 20:59 12/29/16 20:22 2 TAB Sodium Biphosphate/ Sodium Phosphate (Fleet Enema) 132 ml ONE PRN [place] 12/28/16 10:30 01/27/17 10:29 Hydroxyzine HCl (Vistaril Tab) 25 mg Q8H PRN PO 12/28/16 10:30 01/27/17 10:29 Al Hydroxide/Mg Hydroxide (Maalox Susp) 30 ml Q6H PRN PO 12/28/16 10:30 01/27/17 10:29 Famotidine (Pepcid Tab) 20 mg Q12H PRN PO 12/28/16 10:30 01/27/17 10:29 Diphenhydramine HCl (Benadryl Cap) 25 mg Q6H PRN PO 12/28/16 10:30 01/27/17 10:29 Amlodipine Besylate (Norvasc Tab) 10 mg QPM PO 12/28/16 21:00 01/27/17 20:59 12/29/16 20:22 10 MG Aspirin (Ecotrin Tab) 81 mg QAM PO 12/29/16 09:00 01/28/17 08:59 12/30/16 09:15 81 MG Atorvastatin Calcium (Lipitor Tab) 20 mg QPM PO 12/28/16 21:00 01/27/17 20:59 12/29/16 20:22 20 MG Losartan Potassium (coZAAR TAB) 100 mg QAM PO 12/28/16 12:30 01/27/17 12:29 12/30/16 09:15 100 MG Miscellaneous Information (Consult Glycemic Management Pharmacy) 1 ea UD PRN N/A 12/28/16 11:00 01/27/17 10:59 Glucose (Glucose 40% Gel) 15-30 GRAMS 15 GRAMS... UD PRN PO 12/28/16 11:00 01/27/17 10:59 Glucose (Glucose Chew Tab) 4-8 Tablets 4 Tabl... UD PRN PO 12/28/16 11:00 01/27/17 10:59 Dextrose (Dextrose 50% 50ML Syringe) 25-50ML OF 50% DW IV FOR... UD PRN IV 12/28/16 11:00 01/27/17 10:59 Glucagon (Glucagon Inj) 1 mg UD PRN SQ 12/28/16 11:00 01/27/17 10:59 Hydromorphone HCl (Dilaudid Inj) 0.5 mg Q3H PRN IV 12/29/16 06:00 01/12/17 05:59 Ketorolac Tromethamine (Toradol Inj) 30 mg Q6H PRN IV 12/29/16 15:15 01/03/17 15:14 12/30/16 09:16 30 MG Insulin Aspart (novoLOG INSULIN PUMP) 1 ea ACHS N/A 12/30/16 11:00 01/29/17 10:59 12/30/16 11:34 1 EA Insulin Aspart (novoLOG ASPART) SLIDING SCALE PRN PRN SC 12/30/16 11:15 01/29/17 11:14 Objective Vital Signs Date Time Temp Pulse Resp B/P (MAP) Pulse Ox O2 Delivery O2 Flow Rate FiO2 12/30/16 07:20 Room Air 12/30/16 07:15 36.5 76 18 161/95 (117) 99 Room Air 12/29/16 23:25 Room Air 12/29/16 22:51 36.5 68 18 148/77 (100) 99 Room Air 12/29/16 20:24 147/80 (102) 12/29/16 15:35 Room Air 12/29/16 14:56 36.5 72 17 162/84 (110) 97 Room Air Physical Exam General Appearance: no apparent distress Respiratory/Chest: lungs clear, normal breath sounds, no respiratory distress, no accessory muscle use Cardiovascular: regular rate, rhythm, no edema, no murmur Laboratory Results Last 24 Hours Test 12/29/16 13:51 12/29/16 15:02 12/29/16 16:07 12/29/16 17:05 Bedside Glucose 215 mg/dl 181 mg/dl 142 mg/dl 107 mg/dl Test 12/29/16 18:08 12/29/16 19:08 12/29/16 20:05 12/29/16 21:18 Bedside Glucose 112 mg/dl 226 mg/dl 193 mg/dl 150 mg/dl Test 12/29/16 22:15 12/29/16 22:59 12/30/16 00:09 12/30/16 00:28 Bedside Glucose 124 mg/dl 106 mg/dl 83 mg/dl 83 mg/dl Test 12/30/16 01:29 12/30/16 02:30 12/30/16 03:33 12/30/16 04:29 Bedside Glucose 109 mg/dl 184 mg/dl 200 mg/dl 177 mg/dl Test 12/30/16 05:28 12/30/16 06:04 12/30/16 06:30 12/30/16 08:25 Bedside Glucose 177 mg/dl 151 mg/dl 160 mg/dl White Blood Count 14.69 K/uL Red Blood Count 3.95 M/uL Hemoglobin 12.1 g/dL Hematocrit 34.4 % Mean Corpuscular Volume 87.1 fL Mean Corpuscular Hemoglobin 30.6 pg Mean Corpuscular Hemoglobin Concent 35.2 g/dl RDW Standard Deviation 41.5 fL RDW Coefficient of Variation 13.0 % Platelet Count 166 K/uL Mean Platelet Volume 10.0 fL Sodium Level 141 mmol/L Potassium Level 4.2 mmol/L Chloride Level 108 mmol/L Carbon Dioxide Level 26 mmol/L Anion Gap 7.0 mmol/L Blood Urea Nitrogen 19 mg/dl Creatinine 0.79 mg/dl Est Creatinine Clear Calc Drug Dose 132.9 ml/min Estimated GFR () 118.8 Estimated GFR (Non- 102.5 BUN/Creatinine Ratio 24.4 Random Glucose 172 mg/dl Calcium Level 8.7 mg/dl Test 12/30/16 10:41 12/30/16 11:55 Bedside Glucose 265 mg/dl 231 mg/dl Assessment and Plan This is a 51 year old male with a PMH of testicular cancer s/p L orchiectomy and radiation, now in remission, type 1 DM on an insulin pump, HTN, HLD presents for a planned lumbar decompression/fusion Lumbar Decompression/Fusion 12/30 Hgb stable MADHAVI drain to be removed likely in AM as per ortho plan for d/c in AM 12/29 doing well clinically expected H/H drop monitor labs 12/28 doing well post-operatively POD #0 will check labs in AM (H/H, electrolytes) 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
--- NOTE | 2016-12-30 13:43 | Progress Note ---
Progress Note Date of Service Dec 30, 2016.
--- NOTE | 2016-12-30 13:46 | Progress Note ---
Progress Note Date of Service Dec 30, 2016. Progress Note Back pain controlled leg pain improved. Vital signs are stable. Patient and waiting halls without difficulty. Assessment status post lumbar depression fusion replant this time anticipate discharge home tomorrow will maintain the MADHAVI drain another 24 hours.
[2016-12-30 15:00] VITALS: BP 149/84; PULSE 69; TEMP 36.7; O2SAT 97
[2016-12-30] MEDS ORDERED: NURSING DECISION MEDICATION ORDER SCH (21:15)
[2016-12-30] MEDS: DOCUSATE SODIUM/SENNA 50/8.6MG TAB PO SCH (21:29)
[2016-12-30] MEDS: AMLODIPINE BESYLATE 5 MG TAB PO SCH (21:29)
[2016-12-30] MEDS: ATORVASTATIN 20 MG TAB PO SCH (21:29)
[2016-12-30 21:33] VITALS: BP 150/89
[2016-12-30 23:10] VITALS: BP 142/74; PULSE 67; TEMP 36.8; O2SAT 99
[2016-12-31 06:32] VITALS: BP 148/87; PULSE 74; TEMP 36.5; O2SAT 97
[2016-12-31 07:02] LABS: HEMATOCRIT 31.5 % (42-52); MEAN CELL VOLUME 87.5 fL (80-100); MEAN CORPUSCULAR HEMOGLOBIN 31.1 pg (25-34); MEAN CORPUSCULAR HGB CONC 35.6 g/dl (32-36); MEAN PLATELET VOLUME 9.8 fL (7.4-10.4); PLATELET COUNT 145 K/uL (130-400); WHITE BLOOD COUNT 7.23 K/uL (4.8-10.8)
[2016-12-31 07:33] LABS: CREATININE 0.92 mg/dl (0.60-1.40)
[2016-12-31 07:34] LABS: BUN/CREATININE RATIO 16.7 (10-20); POTASSIUM 4.1 mmol/L (3.5-5.1)
[2016-12-31] MEDS: NovoLOG INSULIN PUMP SCH ×2 (07:39→12:00)
[2016-12-31] MEDS: LOSARTAN POTASSIUM 50 MG TAB PO SCH (07:47)
[2016-12-31] MEDS: ASPIRIN 81 MG ECTAB PO SCH (07:47)
[2016-12-31] MEDS: KETOROLAC TROMETHAMINE 30 MG/ML VIAL IV PRN (07:48)
--- NOTE | 2016-12-31 11:28 | Pharmacy Progress Note ---
Pharmacy Glycemic Short Note 2 Date of Service Dec 31, 2016. ASSESSMENT: * Patient remains on insulin pump and has gone back to usual basal settings himself since BSGs were on the lower side overnight * Plan is for discharge today PLAN FOR INPATIENT GLYCEMIC CONTROL: * Continue insulin pump with usual (not sick day) settings * I have updated this in the MAR PLAN FOR DISCHARGE: * Continue Novolog insulin pump with continued outpatient f/u
--- NOTE | 2016-12-31 12:21 | Discharge Summary ---
Orthopedic Discharge Summary Admission Date/Reason Dec 28, 2016 at 07:30 Spinal Stenosis. Discharge Date/Disposition Dec 31, 2016 Home with services Diagnosis Principal Diagnosis: Lumbar spinal stenosis Admission Physical Exam As per Admitting History & Physical. Hospital Course Patient underwent lumbar decompression fusion tolerated as well as taken to the orthopedic floor postoperatively. Postoperative day #1 he was up and amatory progressed to postoperative day #2 subsequently was discharged home on postoperative day #3 discharge orders and instructions can be found the chart for further review. Discharge Instructions Please refer to the electronic Patient Visit Report (Discharge Instructions) for additional information.
[2016-12-31 12:31] VITALS: BP 148/87; PULSE 74; TEMP 36.5; O2SAT 97
== END 2016-12-31 13:30 | disposition home health service (06) | DRG 454 ==
LOC: C.ACU 05:45 → C.3E 07:30 → ENRESERV 11:15
PROVIDERS: ADMIT Orthopaedic Surgery Orthopaedic Surgery of the Spine; ATTEND Orthopaedic Surgery Orthopaedic Surgery of the Spine
PROC: 0SG1071 Fusion of 2 or more Lumbar Vertebral Joints with Autologous Tissue Substitute, Posterior Approach, Posterior Column, Open Approach (ICD-10-PCS; principal; 2016-12-28 07:45)
PROC: 0ST20ZZ Resection of Lumbar Vertebral Disc, Open Approach (ICD-10-PCS; principal; 2016-12-28 07:45)
PROC: 0SG00AJ Fusion of Lumbar Vertebral Joint with Interbody Fusion Device, Posterior Approach, Anterior Column, Open Approach (ICD-10-PCS; principal; 2016-12-28 07:45)
PROC: 0SN Lower Joints, Release (ICD-10-PCS; principal; 2016-12-28 07:45)
PROC: 0SG3071 Fusion of Lumbosacral Joint with Autologous Tissue Substitute, Posterior Approach, Posterior Column, Open Approach (ICD-10-PCS; principal; 2016-12-28 07:45)
DX: M48.061 Spinal stenosis, lumbar region without neurogenic claudication (principal); D62 Acute posthemorrhagic anemia; M51.16 Intervertebral disc disorders with radiculopathy, lumbar region; E10.9 Type 1 diabetes mellitus without complications; I10 Essential (primary) hypertension; E78.5 Hyperlipidemia, unspecified; Z85.47 Personal history of malignant neoplasm of testis; Z90.79 Acquired absence of other genital organ(s); Z92.3 Personal history of irradiation; Z79.1 Long term (current) use of non-steroidal anti-inflammatories (NSAID); Z79.82 Long term (current) use of aspirin; Z79.899 Other long term (current) drug therapy; Z91.040 Latex allergy status; Z88.3 Allergy status to other anti-infective agents